=== PATIENT | female | born 1965 | race African-American/Black ===

== ENCOUNTER 2019-07-05 10:12 | Day surgery (SDC) | payer OTHER ==
[2019-06-23 09:40] VITALS: BMI 31.1
[2019-07-05] MEDS ORDERED: PROPOFOL 20 ML ONE ×2 (11:13)
[2019-07-05 12:47] VITALS: BP 113/76; PULSE 60
[2019-07-05 13:08] VITALS: TEMP 97.6
--- NOTE | 2019-07-07 09:38 | PATH ---
Surgical Pathology Report Patient Name: GERMÁN NEAL [facility]. Rec. #: [id number] /Age/Gender: 1965 (Age: 53) / F Account: [id number] [facility] Taken: 07/05/2019 Received: 07/05/2019 Reported: 07/07/2019 Physicians: Karla Moreno M.D. Specimen(s) Received A: ERYTHEMA DESCENDING COLON B: POLYP SIGMOID COLON Clinical History History of polyps Postoperative diagnosis: Erythema, colon polyp Final Diagnosis A. COLON, DESCENDING, BIOPSY: COLONIC MUCOSA WITH EXTRAVASATION OF RED BLOOD CELLS WITHIN LAMINA PROPRIA. NO ACTIVE COLITIS, ARCHITECTURAL DISTORTION, GRANULOMATA, OR DYSPLASIA IDENTIFIED. NO MICROSCOPIC COLITIS IDENTIFIED (NO LYMPHOCYTIC OR COLLAGENOUS COLITIS IDENTIFIED). B. COLON, SIGMOID, BIOPSY: HYPERPLASTIC POLYP. Electronically Signed Sachin Farr M.D. Gross Description A. Received in formalin, labeled "biopsy erythema descending colon" are 2 acevedo, irregular portions of soft tissue measuring 0.4 and 0.5 cm. in greatest dimension. The specimens are submitted in toto in one cassette. B. Received in formalin, labeled "biopsy polyp sigmoid colon" are 2 acevedo, irregular portions of soft tissue measuring 0.1 and 0.2 cm. in greatest dimension. The specimens are submitted in toto in one cassette. 07/06/2019 [facility]07/06/2019
== END 2019-07-05 13:05 | disposition home or self-care (01) ==
LOC: FASU-ENDO 10:12
PROVIDERS: ATTEND Internal Medicine Gastroenterology
PROC: 0DBN8ZX Excision of Sigmoid Colon, Via Natural or Artificial Opening Endoscopic, Diagnostic (ICD-10-PCS; 2019-07-05)
PROC: 0DBM8ZX Excision of Descending Colon, Via Natural or Artificial Opening Endoscopic, Diagnostic (ICD-10-PCS; principal; 2019-07-05 11:52)
DX: Z86.010 Personal history of colon polyps (principal); D12.5 Benign neoplasm of sigmoid colon; K63.89 Other specified diseases of intestine; K64.0 First degree hemorrhoids
CPT/HCPCS: 88305-TC